=== PATIENT | female | born 1980 | race Caucasian/White ===

== ENCOUNTER 2016-10-05 15:23 | Emergency (ER) | payer OTHER ==
[~2016-10-05 15:23] MED LIST: ACAI BERRY; ADVAIR 2501 DISK W/D PO; ALBUTEROL0.83 MG/ML INH; ALBUTEROL17 GM INH; AMOXICILLIN PO; BENTYL10 MG PO; CIPRO PO; IRON PO; LEVAQUIN PO; LORTAB 5/500 TA1 TA1 PO; LORTAB 7.5-5001 TAB PO; MEDROL4 MG/DOSE- PO; METRONIDAZOLE PO; MULTI-VITAMIN1 TAB PO; PHENERGAN PO; PREDNISONE PO; PRENATAL MULITV1 TAB PO; PRILOSEC PO; PROVENTIL17 GM INH; PROZAC PO; PYRIDIUM PO; SINGULAIR PO; SLEEPING PILL; YAZ; ZITHROMAX PO; ZITHROMAX1 G/PKT PO; ZYRTEC PO
== END 2016-10-05 16:56 | disposition home or self-care (01) ==
LOC: CED 15:23 → CFTX 15:23
DX: K04.7 Periapical abscess without sinus (principal); J45.909 Unspecified asthma, uncomplicated; Z88.2 Allergy status to sulfonamides; Z88.5 Allergy status to narcotic agent; Z88.1 Allergy status to other antibiotic agents
CPT/HCPCS: 99282

== ENCOUNTER 2016-10-05 21:33 | Emergency (ER) | payer OTHER | END 2016-10-06 02:00 | disposition home or self-care (01) | LOC: CFTX 21:33 → CED 21:33 → CFTX 23:59 | DX: K04.7 Periapical abscess without sinus (principal); J45.909 Unspecified asthma, uncomplicated; F41.9 Anxiety disorder, unspecified; Z88.2 Allergy status to sulfonamides; Z88.5 Allergy status to narcotic agent; Z88.1 Allergy status to other antibiotic agents | CPT/HCPCS: 99282 ==